=== PATIENT | male | born 1950 | race African-American/Black ===

== ENCOUNTER 2018-09-22 08:45 | Inpatient (IN) ==
--- NOTE | 2018-09-22 09:40 | Diag Imaging Result Doc PS360 ---
EXAM: CHEST-2 VIEWS HISTORY: sob TECHNIQUE: Chest two views COMPARISON: None. FINDINGS: The lungs are well expanded. The heart is not enlarged. The vessels are not distended. There are increased interstitial markings in the left lung base as well as a small left pleural effusion. IMPRESSION: Small left pleural effusion with left basilar atelectasis and possibly a small infiltrate. Electronically signed by Sebastian Ingram 09/22/2018 9:36 AM
[2018-09-22 09:58] LABS: BASO# 0.02 X1000 (0.0-0.2); BASO% 0.3 % (0.0-0.8); EOS# 0.01 X1000 (0.0-0.7); EOS% 0.1 % (0.0-10.0); HEMATOCRIT 43.4 % (42.0-52.0); HEMOGLOBIN 14.2 g/dL (14.0-18.0); IMM GRAN# 0.01 X1000 (0.0-0.04); IMM GRAN% 0.1 % (0.0-0.5); LYMPH# 0.62 X1000 (1.2-3.4); LYMPH% 8.8 % (20.5-51.1); MCH 28.3 PG (27-31); MCHC 32.7 g/dL (33-37); MCV 86.6 FL (81-99); MONO# 1.08 X1000 (0.11-0.59); MONO% 15.3 % (1.7-9.3); MPV 9.9 FL (7.4-10.4); NEUT# 5.31 X1000 (1.4-6.5); NEUT% 75.4 % (42.2-75.2); PLT 221 X1000 (130-400); RBC 5.01 XMIL (4.7-6.1); RDW 15.3 % (11.5-14.5); WBC 7.05 X1000 (4.8-10.8)
[2018-09-22 10:25] LABS: ALBUMIN 3.8 g/dL (3.5-5.0); CALCIUM 9.6 mg/dL (8.8-10.2); CREATININE 1.2 mg/dL (0.7-1.2); POTASSIUM 4.1 mmol/L (3.5-5.1); TOTAL BILIRUBIN 0.6 mg/dL (0.20-1.00); TOTAL PROTEIN 6.8 g/dL (6.3-8.3)
[2018-09-22 10:51] LABS: INR 1.6; PROTIME 19.8 Seconds (11.0-16.0)
--- NOTE | 2018-09-22 10:58 | EKG Report ---
Test Performed on : 09/22/2018 10:54:06 AM Test Reason : sob Blood Pressure : / mmHG Vent. Rate : 113 BPM Atrial Rate : 113 BPM P-R Int : 130 ms QRS Dur : 078 ms QT Int : 316 ms P-R-T Axes : 073 042 055 degrees QTc Int : 433 ms Sinus tachycardia. Low voltage QRS Borderline ECG No previous ECGs available Unconfirmed Result
[2018-09-22] MEDS ORDERED: ZITHROMAX PO ONE (11:27)
[2018-09-22] MEDS ORDERED: ROCEPHIN 1 GM in NS 50 ML IV ONE (11:27)
[2018-09-22] MEDS ORDERED: DUONEB (A & A) INH ONE (11:32)
--- NOTE | 2018-09-22 13:37 | Diag Imaging Result Doc PS360 ---
EXAM: CT ANGIOGRM PULMONARY ARTERIES 09/22/2018 HISTORY: dyspnea TECHNIQUE: This exam was performed using automated exposure control, adjustment of mA or kV according to patient size, and/or use of iterative reconstruction technique. COMMENT: 3-D MIPS were performed. There are no previous studies. There are no filling defects in the pulmonary arteries. There may be occlusion of the distal superior vena cava. There is dilatation and collateral flow of contrast in the azygos vein and hemiazygos veins. There are numerous collateral veins seen in the subcutaneous anterior thoracic wall. There are bilateral pleural fluid collections. There are postsurgical changes present in the right paratracheal region. There is volume loss in the posterior medial right upper lobe. There is also atelectasis in the superior segment of the right lower lobe. There is some increased interstitial markings in the right lower lobe and atelectasis is present in the inferior portion of the left lower lobe. There is apparent atelectatic or fibrotic linear scar in the anterior left upper lobe. There is a large pericardial effusion which posterior to the right ventricle measures over 3 cm in thickness. IMPRESSION: 1. No evidence of pulmonary emboli. 2. Occlusion of the distal superior vena cava with collateral flow. 3. Bibasilar atelectasis or pneumonia. Bilateral pleural effusions and pericardial effusion. Electronically signed by Efraín Dasilva 09/22/2018 1:35 PM
--- NOTE | 2018-09-22 13:57 | PROVIDER DOCUMENTATION ---
This chart was entered by Leigh Ferrell Scribe, acting as scribe for Bree Knight MD. HPI-Respiratory General - General Chief Complaint: Shortness of Breath Stated Complaint: SOB Time Seen by Provider: 09/22/18 10:47 Source: patient Allergies/Adverse Reactions: Patient Allergies Allergy/AdvReac Type Severity Reaction Status Date / Time No Known Allergies Allergy Verified 09/22/18 08:52 - History of Present Illness-Resp Nature of Presenting Problem: Patient is a 68 year old male who presents to the ED with shortness of breath and cough. Patient states symptoms have been present for 2 weeks. Patient denies fever. Patient states history of lung cancer that was diagnosed in 2016. Patient states he received chemo and radiation but is not currently on treatment for cancer. Quality of Pain: reports: tightness Severity in ED: reports: mild Onset/Duration: reports: other (2 weeks) Timing: reports: still present, getting worse Cough Quality/Degree: reports: moderate, dry cough Current Respiratory Medication Therapy: Initiated see nurses note Modifying Factors: improves with: nothing Associated Symptoms: reports: cough, shortness of breath Similar Symptoms Previously?: Yes Recently seen or treated by another doctor?: No Review of Systems - Adult - REVIEW OF SYSTEMS - ADULT Constitutional: reports: no symptoms reported Eyes: reports: no symptoms reported Ears, Nose, Mouth & Throat: reports: no symptoms reported Cardiovascular: reports: no symptoms reported Respiratory: reports: cough, shortness of breath. denies: wheezing Gastrointestinal: reports: no symptoms reported Genitourinary: reports: no symptoms reported Musculoskeletal: reports: no symptoms reported Integumentary: reports: no symptoms reported Neurological: reports: no symptoms reported Psychiatric: reports: no symptoms reported Endocrine: reports: no symptoms reported Hematologic/Lymphatic: reports: no symptoms reported Allergic/Immunologic: reports: no symptoms reported All Other Systems: Reviewed and Negative Past History - Adult - PAST MEDICAL HISTORY-ADULT Review of Records: reports: Nursing Assessment Review, Medications Reviewed, Social history reviewed & non-contributory. Major Childhood Illnesses: reports: denies history Cardiovascular: reports: HTN Respiratory: reports: cancer Gastrointestinal: reports: denies history Obstetrical/Gynecological: reports: denies history Genitourinary: reports: denies history Musculoskeletal: reports: denies history Neurological: reports: denies history Psychiatric: reports: denies history Endocrine/Immune: reports: denies history Other Conditions: reports: denies history - PRIOR SURGERIES/PROCEDURES Surgical/Procedure History: reports: reviewed, not pertinent - IMMUNIZATION STATUS Childhood Immunizations: See Nurse Assessment Flu Vaccine: See Nurse Assessment - FAMILY HISTORY Family History: reviewed, not pertinent - SOCIAL HISTORY Smoking: cigarettes (former) Substance Use: denies Living Situation: family Physical Exam-General - PHYSICAL EXAM-ADULT Initial Vital Signs Reviewed: Yes - CONSTITUTIONAL General Appearance: appears well, alert, no apparent distress - EYES Eyes: pink conjunctivae - HEAD, EARS, NOSE, MOUTH & THROAT HENMT: moist mucous membranes - NECK Neck: non-tender, supple - RESPIRATORY Respiratory: chest non-tender, no respiratory distress, no accessory muscle use , other (left lower lung rhochi) - CARDIOVASCULAR Cardiovascular: normal peripheral pulses, no edema, no murmur, tachycardia - GASTROINTESTINAL (ABDOMEN) Abdominal Exam: non tender, soft - LYMPHATIC Lymphatic: no adenopathy - MUSCULOSKELETAL Back Exam: normal inspection Extremity: normal range of motion, non-tender. negative: no pedal edema - SKIN Integumentary: normal color, normal turgor, warm/dry - NEUROLOGIC Neurologic: grossly normal, no motor/sensory deficits - PSYCHIATRIC Psych/Mental Status: normal mood/affect, normal thought content, normal thought process, oriented x 3 Progress - PLAN OF CARE/RESULTS Progress/Plan/Lab Results: Vital Signs - 8 hr 09/22/18 08:47 09/22/18 11:10 09/22/18 11:59 Temperature 97.5 F L Pulse Rate 123 H 115 H 122 H Respiratory Rate 24 14 24 Blood Pressure 118/83 119/92 O2 Sat by Pulse Oximetry 96 97 96 Laboratory Results - last 24 hr 09/22/18 09/22/18 09/22/18 09:40 09:40 09:40 WBC 7.05 RBC 5.01 Hgb 14.2 Hct 43.4 MCV 86.6 MCH 28.3 MCHC 32.7 L RDW Std Deviation 15.3 H Plt Count 221 MPV 9.9 Immature Gran % (Auto) 0.1 Neut % (Auto) 75.4 H Lymph % (Auto) 8.8 L Hampton % (Auto) 15.3 H Eos % (Auto) 0.1 Baso % (Auto) 0.3 Immature Gran # (Auto) 0.01 Neut # (Auto) 5.31 Lymph # (Auto) 0.62 L Hampton # (Auto) 1.08 H Eos # (Auto) 0.01 Baso # (Auto) 0.02 PT INR PTT (Actin FS) Sodium 140 Potassium 4.1 Chloride 107 Carbon Dioxide 19 L Anion Gap 14 BUN 24 H Creatinine 1.2 Estimated GFR/1.73 m2 60 BUN/Creatinine Ratio 20 Glucose 116 H Calculated Osmolality 284 Calcium 9.6 Total Bilirubin 0.60 AST 20 ALT 27 Alkaline Phosphatase 80 Creatine Kinase 91 Troponin T Qsq-U-Lquoudrfxbb Pept 298 H Total Protein 6.8 Albumin 3.8 Globulin 3.0 Albumin/Globulin Ratio 1.0 09/22/18 09/22/18 09:40 09:40 WBC RBC Hgb Hct MCV MCH MCHC RDW Std Deviation Plt Count MPV Immature Gran % (Auto) Neut % (Auto) Lymph % (Auto) Hampton % (Auto) Eos % (Auto) Baso % (Auto) Immature Gran # (Auto) Neut # (Auto) Lymph # (Auto) Hampton # (Auto) Eos # (Auto) Baso # (Auto) PT 19.8 H INR 1.60 PTT (Actin FS) 36.0 Sodium Potassium Chloride Carbon Dioxide Anion Gap BUN Creatinine Estimated GFR/1.73 m2 BUN/Creatinine Ratio Glucose Calculated Osmolality Calcium Total Bilirubin AST ALT Alkaline Phosphatase Creatine Kinase Troponin T < 0.010 Amt-X-Rgrnynfbzwh Pept Total Protein Albumin Globulin Albumin/Globulin Ratio Orders Category Date Time Status Cardiac Monitoring DIRECTED Care 09/22/18 08:53 Active Oxygen Therapy- ED Nursing DIRECTED Care 09/22/18 08:53 Active Saline Loc NOW Care 09/22/18 08:53 Active CHEST-2 VIEWS [RAD] Stat Exams 09/22/18 08:[address] ANGIOGRM PULMONARY ARTERIES [CT] Stat Exams 09/22/18 11:49 Completed CBC WITH ELECTRONIC DIFF [HEME] Stat Lab 09/22/18 09:40 Completed CK PROFILE [SP CHEM] Stat Lab 09/22/18 09:40 Completed COMPREHENSIVE METABOLIC PANEL [CHEM] Stat Lab 09/22/18 09:40 Completed PRO B-NATRIURETIC PEPTIDE Stat Lab 09/22/18 09:40 Completed PROTIME WITH INR [COAG] Stat Lab 09/22/18 09:40 Completed PTT [COAG] Stat Lab 09/22/18 09:40 Completed TROPONIN T Stat Lab 09/22/18 09:40 Completed Albuterol 2.5MG/Ipratrop 0.5MG [Duoneb (A & A)] Med 09/22/18 11:32 Discontinued 3 ml INH NOW ONE Azithromycin [Zithromax] Med 09/22/18 11:27 Discontinued 500 mg PO NOW ONE CefTRIAXONE [Rocephin] 1 gm Med 09/22/18 11:27 Discontinued 0.9% Sodium Chloride Inj [Ns] 50 ml IV NOW Aerosol Treatments Routine Oth 09/22/18 11:32 Completed Aerosol Treatments Stat Oth 09/22/18 11:32 Completed CP/SOB/Palp >45 yrs of Age Stat Oth 09/22/18 08:52 Ordered EKG [EKG] Stat Ther 09/22/18 08:53 Draft chest xray infiltrate likely and effusion on LLL, nl total wbc but large shift in neutrophils, bnp nl, HR elevated 111, PMH lung ca on right stable with recent CT and echo Aug 2018, suspect pneumonia, pt had great difficulty walking across the parking lot to get to the ED 1318 d/w Dr Cerrato HPI exam chest xray labs treatment waiting on CTA to verify 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 FINDINGS: The lungs are well expanded. The heart is not enlarged. The vessels are not distended. There are increased interstitial markings in the left lung base as well as a small left pleural effusion. IMPRESSION: Small left pleural effusion with left basilar atelectasis and possibly a small infiltrate. Electronically signed by Sebastian Ingram 09/22/2018 9:36 AM 09/22/18 0936 Interpreting Physician: Sebastian Ingram MD Dictated Date/Time: 09/22/1835 cc: Bree Knight MD;) Departure - Departure Date of Disposition Decision: 09/22/18 Time of Disposition Decision: 13:18 DIAGNOSIS: Dyspnea Pneumonia Qualifiers: Laterality: left Lung location: lower lobe of lung Disposition: ADMITTED INPATIENT 09 Certified Medical Emergency: Emergent Condition: Good Referrals and Follow-Ups: None,PCP [Primary Care Provider] - - Critical Care Note This patient required my direct & personal management of CC.: No Attestation - Physician/ TAYLOR Attestation The physician spent face to face time with patient:: Yes Advanced Practice Provider documentation review:: Supervising physician onsite and consulted in the evaluation and care of this patient. The physician did have a face to face encounter with the patient. This chart was documented by the indicated scribe, (Leigh Ferrell Scribe) and accurately reflects the services I performed and decisions made by me, Bree Knight MD, as attested by the provider's signature.
[2018-09-22] MEDS ORDERED: TYLENOL PO PRN (15:42)
[2018-09-22] MEDS ORDERED: ZOFRAN IV PRN (15:42)
[2018-09-22] MEDS ORDERED: NS 1,000 ML IV SCH (16:00)
--- NOTE | 2018-09-22 17:28 | HISTORY AND PHYSICAL ---
CHIEF COMPLAINT: Is shortness of breath for 2 weeks. HISTORY OF PRESENT ILLNESS: This is a very pleasant 68-year-old gentleman with a history of prostate and lung cancer. He presents to the emergency room complaining of 2 weeks of increasing shortness of breath and orthopnea. He has a history of lung cancer as well as prostate cancer for which he has undergone radiation. He does have residual right lung tumor that they were unable to excise. He states that this has subsequently caused vena caval compression and that over the years that he has formed collaterals. He did state that for many years he had facial and upper extremity swelling but this is decreased as collaterals have increased. He states that he has a known pericardial effusion and that he is followed by Dr. Topher Boateng in [place], his senior teradata developer. He had an echocardiogram done in August and he stated that it was stable, although he is unaware of the size of the pericardial effusion. He denied any fevers, chills, any night sweats, a productive cough. 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 Once he arrived, he presented to the emergency room. PAST MEDICAL HISTORY: 1. Lung cancer status post chemo and radiation. 2. Prostate cancer. 3. Hypertension. 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 PAST SURGICAL HISTORY: Pericardial window for pericardial effusion. SOCIAL HISTORY: He denies alcohol, tobacco or illicit drug use. 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 Denies alcohol, tobacco, or illicit drug use. ALLERGIES: No known drug allergies. HOME MEDICATIONS: A list will be obtained by the nursing staff and once reviewed we will restart as appropriate. REVIEW OF SYSTEMS: Discussed with the patient with pertinent positives stated in the HPI. He denied any syncope, dizziness, any chest pain, palpitations, a productive cough , any fevers or chills, night sweats, recent weight loss or weight gain, any nausea, vomiting, diarrhea, constipation, black or bloody vomitus or stools, any hematuria, dysuria, frequency, urgency. PHYSICAL EXAMINATION: GENERAL: This is a 68-year-old gentleman who is sitting up in the stretcher in the emergency room in no distress. VITAL SIGNS: Blood pressure is 119/90 with a heart rate of 115, respirations are 18 to 28, O2 saturation are 96 to 97% on 2 L nasal cannula. HEENT: Pupils are equal, round, react to light. EOMs are intact. Sclerae are anicteric. Head is normocephalic, atraumatic. Mucous membranes are moist. NECK: Supple with trachea midline. CARDIOVASCULAR: Regular rate and rhythm. S1 and S2 are appreciated. He has no lower extremity edema with peripheral pulses palpable x4 extremities. He is tachycardic. PULMONARY: Breath sounds are diminished in the bases. Chest rises and falls symmetrically with respiration. Chest wall is nontender to palpation. GASTROINTESTINAL: Abdomen is soft, nontender, nondistended with bowel sounds in all 4 quadrants. GENITOURINARY: He has no CVA nor suprapubic tenderness. NEUROLOGIC: He is alert, oriented x3. SKIN: Warm and dry. LABS: WBC is 7.0 with hemoglobin 14.2, hematocrit 43.4 and platelets of 221, 000. Sodium is 140, potassium 4.1, BUN 24, creatinine 1.2 with a glucose of 116. Chest x-ray revealed small left pleural effusion with left basilar atelectasis and probably a small infiltrate. CTA pulmonary revealed no evidence of pulmonary emboli. There may be occlusion of the distal superior vena cava with collateral flow, bibasilar atelectasis or pneumonia. ASSESSMENT AND PLAN: 1. Left lower lobe pneumonia. 2. Tachycardia. 3. Pericardial effusion. 4. History of lung cancer with residual right lung tumor. 5. 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 This is secondary to the right lung residual tumor. The patient will be admitted to [facility] ICU. He will be placed on telemetry. Will give supplemental oxygen, give Xopenex and Atrovent nebs q.4 hours. Rocephin and azithromycin for antibiotic coverage. CBC and CMP in the morning. Consulted and discussed with Dr. Dominguez Sanford with Cardiology who reviewed the patient's chart. He has ordered an echocardiogram . The patient's senior teradata developer Dr. Topher Boateng is at [facility] in [place]. His phone #[phone]. I did attempt to call the office to obtain records. They are closed. The answer service did state that there was another covering group direct care professional tonight. Further treatments pending hospital course. Dictated by DORIAN Parra for German Cerrato MD This chart was documented by, DORIAN Parra and accurately reflects the services performed, treatment plan and medical decisions as attested by the providers signature German Cerrato MD. cc: DORIAN Parra MD [facility]
[2018-09-22] MEDS: ATROVENT NEB INH SCH ×2 (19:30→22:46)
[2018-09-22] MEDS: XOPENEX NEB INH SCH ×2 (19:30→22:46)
--- NOTE | 2018-09-22 19:55 | CARDIOLOGY CONSULTATION ---
DATE: 09/22/2018 CHIEF COMPLAINT: Shortness of breath. HISTORY OF PRESENT ILLNESS: Mr. Orozco is a 68-year-old black male with a history of lung cancer with previous chemotherapy and radiation. He is a resident of [place] and has all of his care provided there. 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 He noted progressive shortness of breath over the last several days and presented to the ER. In the ER he had an echocardiogram which suggested a very large pericardial effusion with early tamponade type signs. The patient did report some discomfort in his chest which seems to improve with a more upright and leaning over posture. He denies any overt fevers. He has had some mild dry cough. He has had no exertional chest pain. He has noted significant dyspnea on exertion as well as some issues with orthopnea. PAST MEDICAL HISTORY: 1. Significant for lung cancer with previous chemo and radiation therapy. He has not received any sort of treatment for this since March. The reason for the cessation of therapy is unclear but he has returned to work. 2. Prostate cancer. 3. Hypertension. 4. History of pericardial effusion with previous pericardial window. He has had echocardiograms performed recently and has had a reported pericardial effusion that his oil and gas principal in [place] said but did not require treatment. 5. Superior vena cava occlusion with collateralization. SOCIAL HISTORY: No alcohol, tobacco or illicit drugs. 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 FAMILY HISTORY: Significant for hypertension. REVIEW OF SYSTEMS: A 10 system review of systems is negative except for those mentioned in HPI. PHYSICAL EXAMINATION: The patient is afebrile. His heart rates are in the 110s to 120s. His blood pressure most recently was in the 130 systolic, 122/81 at 1750.General: He is in minimal distress secondary to shortness of breath. HEENT: Oropharynx is moist. He has normal dentition. His eye examination shows pink conjunctivae, white sclerae. Neck: Shows distended jugular veins. Cardiovascular: He sounds to be in a mildly tachycardic and regular rhythm. He has no murmurs. He has no S3. He has trace bilateral lower extremity edema and warm and well perfused lower extremities. Chest: Is notable for bilateral mild rales. No increased work of breathing. Abdomen: Soft, nontender, nondistended. He has no obvious organomegaly. Skin: Warm and dry throughout without any rashes. Neurological: He is moving all extremities well. He has no lateralizing deficits. Psychiatric: He is alert, oriented, pleasant. He has a normal mood and affect. PERTINENT DATA: His EKG shows sinus tachycardia at 113 beats per minute. He has generalized low voltage. His pulmonary arteriogram shows no evidence of pulmonary emboli. He has an occlusion of the distal superior vena cava with significant collateralization. Large pericardial effusion with bilateral pleural effusions. His echocardiogram had been reviewed by me and demonstrated a significant pericardial effusion. Lab data shows a white count of 7, hematocrit 43, platelet count 221,000. His INR is 1.6. His sodium is 140, potassium 4.1, BUN 24, creatinine is 1.2. His proBNP is 298. His liver enzymes are unremarkable. His albumin is 3.8. ASSESSMENT: Mr. Orozco is a 68-year-old gentleman with a history of lung cancer, who has a previously followed pericardial effusion that presently seems to have progressed to the point of early tamponade. PLAN: Currently he seems clinically stable. His blood pressure is maintaining. He is saturating well on 2 L nasal cannula. I agree with continuing him on IV fluids. I have discussed the case with Dr. Duval of the surgical service and they will evaluate him in the morning for pericardial window. I have made him NPO after midnight. I have ordered basic laboratories in the morning as well. cc: Dominguez Sanford MD
[2018-09-22] MEDS: NS 1,000 ML IV SCH (23:27)
--- NOTE | 2018-09-22 23:33 | ECHO REPORT ---
ORDER DATE: 09/22/2018 MEASUREMENTS: Left ventricular end-diastolic diameter 2.6, septal thickness 1.7, aortic root 2.9, left atrium 3.5. SUMMARY: 1. Adequate quality study. 2. Moderate sclerosis of trileaflet aortic valve predominantly involving the right coronary cusp with reduced aortic valve leaflet mobility. Peak gradient across aortic valve is 40 mmHg with a mean gradient of 14 mmHg. Calculated aortic valve area by Doppler is 1.1 to 1.2 cm sq suggesting moderate aortic stenosis. There is mild aortic regurgitation. Mitral and tricuspid valves are without evidence of structural abnormality. There is trace tricuspid regurgitation. Aortic root is normal in size. Pulmonic valves not well demonstrated. 3. Normal left ventricular chamber size with moderate concentric left hypertrophy is demonstrated. Estimated left ejection fraction appears to be at least 65%. No regional wall motion abnormalities evident. Left atrium is normal in size. Right atrium, right ventricle are normal in size with grossly preserved right ventricular systolic function. 4. Large circumferential pericardial effusion is demonstrated. Echocardiographic appearance does not confirm tamponade. 5. Inferior vena cava appears upper normal in size suggesting upper normal central venous pressure. cc: MD Dominguez Cannon MD
--- NOTE | 2018-09-23 00:16 | HISTORY AND PHYSICAL ---
ADDENDUM: Patient seen and examined by myself, full note dictated and discussed with nurse practitioner. Patient has a known history of lung cancer has recently had a CT scan that was reported as stable, has history of prostate cancer as well as chronic vena caval occlusion with collateral flow. He presented the hospital with increased cough, congestion, increased work of breathing, shortness of breath subsequently diagnosed with left lower lobe pneumonia, will admit him the hospital, place on antibiotics and follow. Please see full note. cc: German Cerrato MD
[2018-09-23] MEDS: ATROVENT NEB INH SCH ×6 (03:48→22:49)
[2018-09-23] MEDS: XOPENEX NEB INH SCH ×6 (03:49→22:50)
--- NOTE | 2018-09-23 08:15 | GENERAL SURGERY CONSULTATION ---
DATE: 09/23/2018 TIME SEEN: 7:40 in the morning. HISTORY OF PRESENT ILLNESS: Mr. 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 He is en route from [place] to [place] and presented with shortness of breath. He has a known history of lung cancer, being treated with radiation. Also, apparently has a history of prostate cancer as well. His workup has revealed a pericardial effusion with early tamponade features. He has a history of a previous pericardial window back in 2016. He says he subsequently developed venous collaterals over time since over the past year. His CT scan suggested distal superior vena cava occlusion. SOCIAL HISTORY: He denies alcohol, tobacco, or drug use. He is alone and is not . ALLERGIES: He has no known drug allergies. MEDICATIONS: Currently include Rocephin, Xopenex, Atrovent, and Zithromax. PHYSICAL EXAMINATION: General: He is awake, alert, and oriented. Small venous collaterals are noted on his chest wall. Chest: has bilateral breath sounds. Heart: He is tachycardic with his rate being in the 120 range. Abdomen: Soft. He reports some peripheral swelling, but he does not have a lot of lower extremity edema. LABORATORY DATA: Shows a white count of 7000, hemoglobin 14.2. Pro-time is 19.8 with an INR 1.6. BUN 24, creatinine 1.2. PLAN: I have been asked to consider a pericardial window. The challenge is that the fact that he has had a previous subxiphoid pericardiotomy. He now has numerous venous collaterals. His INR is slightly elevated as well. I will talk with Radiology about a percutaneous aspiration of his pericardial fluid as an alternative to an incision because of his risks involved. If we proceed with incision and pericardial window, will probably go through a left anterior thoracotomy in order to try to avoid previous scar below the xiphoid. cc: Prakash Duval MD
[2018-09-23 08:46] LABS: HEMATOCRIT 46.3 % (42.0-52.0); HEMOGLOBIN 15.2 g/dL (14.0-18.0); MCH 28.8 PG (27-31); MCHC 32.8 g/dL (33-37); MCV 87.9 FL (81-99); MPV 10.1 FL (7.4-10.4); RBC 5.27 XMIL (4.7-6.1); RDW 15.6 % (11.5-14.5); WBC 7.76 X1000 (4.8-10.8)
[2018-09-23 08:55] LABS: INR 1.29; PROTIME 17.1 Seconds (11.0-16.0)
[2018-09-23 08:56] LABS: PTT 31.9 Seconds (22.3-41.8)
[2018-09-23] MEDS ORDERED: ZITHROMAX PO SCH (09:00)
[2018-09-23 09:38] LABS: AGAP 15; ALB/GLOB RATIO 1.8; ALBUMIN 4.3 g/dL (3.5-5.0); ALKALINE PHOSPHATASE 79 U/L (32-122); BUN 19 mg/dL (8-22); CALCIUM 9.5 mg/dL (8.8-10.2); CHLORIDE 106 mmol/L (98-107); COSMO 285; CREATININE 1.1 mg/dL (0.7-1.2); ESTIMATED GFR > 60; GLUCOSE 121 mg/dL (70-104); GOT 22 U/L (10-34); GPT 34 U/L (10-44); POTASSIUM 4.5 mmol/L (3.5-5.1); SODIUM 141 mmol/L (136-145); TCO2 20 mmol/L (25-35); TOTAL BILIRUBIN 0.74 mg/dL (0.20-1.00); TOTAL PROTEIN 6.7 g/dL (6.3-8.3)
--- NOTE | 2018-09-23 11:36 | Diag Imaging Result Doc PS360 ---
EXAM: CHEST-2 VIEWS INDICATION: POST DRAIN TECHNIQUE: 2 views COMPARISON: 09/22/2018 FINDINGS: The newly placed pericardial drain is noted with the tip coiled near the cardiac apex. The cardiac silhouette has decreased in size the two aspiration of approximately 400 mL of pericardial fluid during the procedure. The small amount of pericardial and pleural gas seen on the postprocedural CT on the left is not visible by plain radiograph. The small left pleural effusion is stable. Atelectasis at the lung bases is noted. IMPRESSION: 1.The small amount of pleural and pericardial gas seen on the recent postprocedural CT is not identified by plain radiograph. 2.Decreasing cardiac silhouette size as a result of pericardial tube placement. Electronically signed by Ron Duran 09/23/2018 11:33 AM
[2018-09-23] MEDS: ROCEPHIN 1 GM in NS 50 ML IV SCH (11:47)
--- NOTE | 2018-09-23 12:31 | Diag Imaging Result Doc PS360 ---
EXAM: CT PLEURAL DRN CATH W/CT GUIDE INDICATION: pericardial effusion TECHNIQUE: COMPARISON: 09/22/2018 FINDINGS: Risks, benefits, and alternatives were discussed with the patient and informed consent was obtained. The patient was placed in a supine position and was prepped and draped in sterile fashion. Local anesthesia was achieved with 1% lidocaine solution. Using CT guidance, a 10-New Zealander pigtail drainage catheter was placed in the pericardial space adjacent to the apex of the heart taking care to avoid the dilated subcutaneous varices at the chest wall. Proximally 400 mL of reddish-brown serosanguineous fluid was aspirated. The patient reported immediate improvement of dyspnea after aspiration. The patient tolerated the procedure well. Postprocedural scans showed a significant improvement of the size of the pericardial fluid collection. There was a small amount of pericardial gas as well as a small amount of pleural gas adjacent to the lingula. However, this was not perceptible on a following chest radiograph. The catheter was secured with silk suture and a catheter dressing. IMPRESSION: Technically successful CT-guided pericardiocentesis and pigtail catheter placement with a small amount of postprocedural pericardial and left pleural gas. Electronically signed by Ron Duran 09/23/2018 12:30 PM
[2018-09-23] MEDS: NS 1,000 ML IV SCH (14:01)
[2018-09-23 15:11] LABS: GLUCOSE BODY FLUID 77 mg/dL; LDH BODY FLUID 528 U/L; TOTAL PROT BODY FLUID 3.5 g/dL
[2018-09-23 16:13] LABS: BODY FLUID SOURCE PLEURAL FLUID; PH BODY FLUID 8.5; SPECIMEN PLEURAL FLUID
[2018-09-23 16:14] LABS: MONOS 15 %; POLYS 85 %; WBC BF 804 /cumm
[2018-09-23] MEDS: MORPHINE IV PRN ×2 (16:17→22:36)
--- NOTE | 2018-09-23 20:23 | CARDIOLOGY PROGRESS NOTE ---
DATE: 09/23/2018 SUBJECTIVE: Mr. Orozco underwent his pericardiocentesis today with around 400 mL of fluid drained. Drain is still in place. He is feeling much better. Still has a little bit of shortness of breath that he relates to a splinting type discomfort around the catheter site when he takes a deep breath. PHYSICAL EXAMINATION: Vital signs: The patient is afebrile. His heart rate is 98, his blood pressure is 129/79. Generally, he is in no acute distress. Cardiovascular: He sounds to be in a regular rate and rhythm. I do not hear any obvious murmurs. Catheter site is clean, dry, bandaged. Is still outputting some relatively bloody fluid at the current time. Chest: His chest exam is clear bilaterally. He has no increased work of breathing. Abdomen: Soft, nontender. PERTINENT DATA: His lab data today shows a sodium 141, potassium 4.5, BUN 19, creatinine is 1.1. His hematocrit is 46. ASSESSMENT: Mr. Orozco is a 68-year-old gentleman with a history of lung cancer with what appears to be a malignant effusion with recurrence after previous pericardial window quite some time ago. PLAN: I have discussed with his primary cook italian style food in [place], Dr. Fuentes, and he is sending us some records regarding the patient. We will continue with a drain in place until the output has fallen off significantly, hopefully less than 25 mL. Presently, the patient is much better clinically. Continue with supportive care. cc: Dominguez Sanford MD [facility]
--- NOTE | 2018-09-23 21:51 | Diag Imaging Result Doc PS360 ---
EXAM: CHEST-PORTABLE INDICATION: per Dr. Sanford TECHNIQUE: 2 views COMPARISON: None. FINDINGS: The pericardial catheter is in stable position. Still no pneumothorax can be identified by plain radiograph. There is probably trace pericardial gas, which was seen on a postprocedural CT performed earlier today. There has been interval development of pulmonary edema and pulmonary venous congestion. There has been development of a small right pleural effusion. IMPRESSION: 1.No perceptible pneumothorax by plain radiograph. 2.Likely trace pericardial gas, which is expected given recent placement of the pericardial drainage catheter. 3.Development of pulmonary edema and pulmonary venous congestion with a small right effusion. Electronically signed by Ron Duran 09/23/2018 9:49 PM
[2018-09-24] MEDS: NS 1,000 ML IV SCH (03:21)
[2018-09-24] MEDS: ATROVENT NEB INH SCH ×6 (03:52→23:02)
[2018-09-24] MEDS: XOPENEX NEB INH SCH ×6 (03:53→23:03)
[2018-09-24 07:08] LABS: BASO# 0.02 X1000 (0.0-0.2); BASO% 0.2 % (0.0-0.8); EOS# 0.01 X1000 (0.0-0.7); EOS% 0.1 % (0.0-10.0); HEMATOCRIT 44.6 % (42.0-52.0); HEMOGLOBIN 14.2 g/dL (14.0-18.0); IMM GRAN# 0.03 X1000 (0.0-0.04); IMM GRAN% 0.3 % (0.0-0.5); LYMPH# 0.79 X1000 (1.2-3.4); LYMPH% 8.8 % (20.5-51.1); MCH 28.5 PG (27-31); MCHC 31.8 g/dL (33-37); MCV 89.6 FL (81-99); MONO# 1.32 X1000 (0.11-0.59); MONO% 14.7 % (1.7-9.3); MPV 9.8 FL (7.4-10.4); NEUT# 6.81 X1000 (1.4-6.5); NEUT% 75.9 % (42.2-75.2); PLT 223 X1000 (130-400); RBC 4.98 XMIL (4.7-6.1); RDW 15.5 % (11.5-14.5); WBC 8.98 X1000 (4.8-10.8)
--- NOTE | 2018-09-24 07:23 | Diag Imaging Result Doc PS360 ---
EXAM: CHEST-PORTABLE INDICATION: per Dr. Duran TECHNIQUE: One view COMPARISON: 09/23/2018 FINDINGS: The pericardial tube is in stable position. Pulmonary edema and pulmonary venous congestion appears to have improved marginally. The small right effusion is approximately stable. No pericardial gas can be identified on the current study. No pneumothorax is perceptible. IMPRESSION: 1.Interval marginal improvement of pulmonary edema and pulmonary venous congestion. 2.The trace pericardial fluid seen previously is not perceptible on the current study. Electronically signed by Ron Duran 09/24/2018 7:21 AM
[2018-09-24 07:30] LABS: AGAP 12; ALB/GLOB RATIO 1.7; ALBUMIN 3.8 g/dL (3.5-5.0); ALKALINE PHOSPHATASE 70 U/L (32-122); BUN 14 mg/dL (8-22); CALCIUM 8.8 mg/dL (8.8-10.2); CHLORIDE 104 mmol/L (98-107); COSMO 276; CREATININE 1.1 mg/dL (0.7-1.2); ESTIMATED GFR > 60; GLUCOSE 100 mg/dL (70-104); GOT 21 U/L (10-34); GPT 29 U/L (10-44); POTASSIUM 4.5 mmol/L (3.5-5.1); SODIUM 138 mmol/L (136-145); TCO2 22 mmol/L (25-35); TOTAL BILIRUBIN 0.88 mg/dL (0.20-1.00); TOTAL PROTEIN 6.1 g/dL (6.3-8.3)
--- NOTE | 2018-09-24 08:44 | PROGRESS NOTE ---
DATE: 09/23/2018 SUBJECTIVE: This morning, Mr. Orozco refers to be feeling a lot better. According to him, the shortness of breath has significantly improved. He just got the pericardiocentesis done and from the IR report, 400 mL of serosanguineous fluid was removed and immediately the patient reported improvement in the dyspnea. Briefly, Mr. Orozco is a 68-year-old gentleman who is resident of [place], who has been diagnosed with lung cancer since 2016. He did undergo multiple rounds of chemotherapy and radiation therapy. The last cycle was March 2018, in [place]. He also refers that somewhere in 2017, he had some shortness of breath and was told that fluid had accumulated around his heart, so he underwent pericardial window. Subsequently, he has been doing fairly okay, but for the past 2 weeks, he has been coming down with some shortness of breath. He went to see his geothermal field technician in [place] and he was told that there was some fluid around his heart, but not enough to warrant any intervention. 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 OBJECTIVE: Vital Signs: This morning, his vitals show blood pressure 129/79, pulse 98, respirations 24, temperature 98.0 degrees. The patient was saturating 96% on 4 L. General: Mr. Orozco is a 68-year-old gentleman. He was in bed. He was in mild respiratory distress. He is currently on 4 L of nasal cannula. HEENT: Mucosa is pink and moist. Anicteric. Acyanotic. Neck: Supple. There is an extensive superficial vein dilation on the anterior chest wall as well as around the neck. Chest: Air entry is bilaterally reduced. There are some crackles posteriorly. There is a JERRELL drain in the 5th intercostal space. Cardiovascular: Regular rate and rhythm. There are no murmurs, no rubs, no gallops. Abdomen: Soft. Bowel sounds present. No hepatosplenomegaly. Extremities: No pedal edema. Central nervous system: The patient is awake, alert, and oriented. No focal neurological deficit. LABORATORY DATA: Reviewed. CBC is completely unremarkable. Chemistry is also completely unremarkable except for a bicarb of 29. DIAGNOSTIC STUDIES: An echocardiogram which was done yesterday did show a large circumferential pericardial effusion. Also, the inferior vena cava appears upper normal in size , suggesting upper normal central venous pressure. CT angiogram shows no evidence of pulmonary emboli. However, there is an occlusion of the distal superior vena cava with collateral flow. ASSESSMENT AND PLAN: 1. Symptomatic, large, recurrent pericardial effusion. The patient is status post pericardiocentesis with 400 mL serosanguineous fluid having been immediately removed and the patient referred to be feeling much better. The Kofi-Yang drain is still in place. Will continue to monitor. 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 2. History of lung cancer. The patient follows up normally with his oncologist in [place]. 3. 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 4. Bilateral lower lobe atelectasis/pneumonia. The patient has been started on antibiotics. Will continue with incentive spirometer. cc: Brian Welsh MD [facility]
[2018-09-24] MEDS: ROCEPHIN 1 GM in NS 50 ML IV SCH (09:08)
[2018-09-24] MEDS ORDERED: ZOFRAN IV PRN (09:31)
[2018-09-24] MEDS ORDERED: TYLENOL PO PRN (09:31)
--- NOTE | 2018-09-24 09:34 | GENERAL SURGERY PROGRESS NOTE ---
DATE: 09/24/2018 Mr. Orozco says he feels significantly better. He is less short of breath. His heart rate is 109 this morning. He has significant decrease in his pericardial effusion based on the echocardiogram. He has 1600 mL recorded as output on his drain. The drain will stay in place today, and we will keep it until the drainage significantly decreases. [facility] will cover in my absence. cc: Prakash Duval MD
[2018-09-24] MEDS ORDERED: LASIX IV ONE (09:51)
[2018-09-24] MEDS: ZITHROMAX PO SCH (10:30)
--- NOTE | 2018-09-24 10:41 | PROGRESS NOTE ---
DATE: 09/24/2018 SUBJECTIVE: This morning Mr. Orozco refers to be doing a little better. Shortness of breath is improving. She says he normally has some chronic residual shortness of breath anyway since he was diagnosed with the lung cancer. He has had a total of 1600 drained from the pericardiocentesis overnight. OBJECTIVE: Vital Signs: This morning, his vitals revel blood pressure is 123/87, pulse is 112, respirations 20, temperature is 98.7 degrees. General exam: Mr. Orozco is a 68-year-old, gentleman. He is in bed. He did not seem to be in any cardiopulmonary distress. HEENT: Mucosa is pink and moist. Patient is on nasal cannula and he is satting 97% on 4 L. Neck: Supple. There is no JVD. Chest: Air entry is bilaterally reduced, more so to the left posterior lung field. There are some crackles bilaterally, worse on the left side than the right. Cardiovascular: Slightly tachycardic, but no murmurs, no rubs, no gallops. There is a JERRELL drain in the fifth intercostal space. The area around the insertion looks clean. Abdomen: Soft, nontender. Bowel sounds are present. There is no hepatosplenomegaly. Extremities: No pedal edema. Distal pulses are present. BIN OPERATOR: Patient is awake, alert and oriented. LABORATORY DATA: 1. WBC is 8.98, hemoglobin is 14.2, platelet count of 233. Chemistry is also reviewed, unremarkable. 2. Analysis of the fluid from the pericardium showed white cell count of 804 with predominantly segments of 85%. LDH was about 528. ASSESSMENT: 1. Large symptomatic pericardial effusion, status post pericardiocentesis. Overnight 1600 mL of fluid has been documented to have been drained. 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 We will continue to follow up on the amount of drainage until it is remarkably reduced before the JERRELL drain is removed. 2. History of small-cell lung cancer. Patient follows up with oncologist in [place]. 3. 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 4. Bilateral lower lobe atelectasis versus pneumonia. We will continue with the current antibiotics. 5. Pulmonary edema, likely due to congestive heart failure with preserved ejection fraction noted. We will get the patient a dose of Lasix this morning since she seems to be slightly more tachypneic this morning and sounds more congested. So, will also discontinue the intravenous fluids. PLAN: So, in general, I think Mr. Orozco is fairly stable. We are going to continue with the current antibiotic coverage and intensive care unit management for today. He will also get a dose of Lasix and we will discontinue the IV fluids. The patient is being followed by Cardiology and Surgery. We appreciate their valuable inputs. cc: Brian Welsh MD
--- NOTE | 2018-09-24 14:04 | CARDIOLOGY PROGRESS NOTE ---
DATE: 09/24/2018 SUBJECTIVE: Mr. Orozco is in some minor to moderate discomfort secondary to the pericardial drain. OBJECTIVE: Vital Signs: He is afebrile. His heart rates continue to be elevated in the 100s to 110s. Blood pressure 125/79. Drain output yesterday was 1600 mL including the initial 400 drained at the time of the placement. General: He is in mild to moderate distress secondary to the discomfort. Cardiovascular: He sounds to be in a mildly tachycardic, but regular rhythm. He has no murmurs. He has no lower extremity edema. Chest: He has mild basilar rales. No increased work of breathing. Abdomen: Soft, nontender. PERTINENT DATA: Lab data shows a white count 8.9, hematocrit 44, platelet count 223,000. Sodium 138, potassium 4.5, BUN 14, creatinine 1.1. ASSESSMENT: Mr. 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 PLAN: He continues to have the drain in place. An echocardiogram is pending for today. Hopefully, he will have reduction in his drain output. Will continue to monitor. cc: Dominguez Sanford MD
--- NOTE | 2018-09-24 14:23 | ECHO REPORT ---
ORDER DATE: 09/24/2018 LIMITED ECHOCARDIOGRAM: INDICATIONS: Assess for pleural effusion following drainage. SUMMARY: 1. Normal left ventricular cavity size. Hyperdynamic left ventricular systolic function estimated at 70% to 75%. 2. Aortic valve leaflets are trileaflet. Mitral valve was normal. Tricuspid valve was normal. 3. There is small anterior and large posterior pericardial effusions. Also, a large effusion noted laterally. There is no obvious evidence of tamponade. Catheter was noted in the pericardial sac. cc: MD Dominguez Zelaya MD
[2018-09-24] MEDS: MORPHINE IV PRN (14:36)
[2018-09-24] MEDS ORDERED: ROBITUSSIN-AC PO PRN (14:39)
[2018-09-25] MEDS: ATROVENT NEB INH SCH ×4 (03:15→15:25)
[2018-09-25] MEDS: XOPENEX NEB INH SCH ×4 (03:15→15:25)
--- NOTE | 2018-09-25 07:01 | Diag Imaging Result Doc PS360 ---
EXAM: CHEST-PORTABLE 09/25/2018 HISTORY: dyspnea TECHNIQUE: AP portable at 0508 COMMENT: There is a drainage tube over the lower left chest. There is apparent pleural fluid on the right. This is worse than on the previous study of 09/24/2018. The hemidiaphragm is now completely obscured. There is atelectasis and/or pneumonia present in the lower lobes particularly the right lower lobe. There is cardiomegaly. IMPRESSION: Worsened right pleural effusion. Electronically signed by Efraín Dasilva 09/25/2018 6:58 AM
--- NOTE | 2018-09-25 08:24 | PROGRESS NOTE ---
DATE: 09/25/2018 SUBJECTIVE: Terrance Orozco is a 68-year-old black male in our ICU Bed 2. He has a drain in his pericardial sac because of a pericardial effusion. This was actually placed by Radiology. He is eating breakfast. OBJECTIVE: There is still some drainage in the drain. PLAN: We will leave it in place for now. He appears to be hemodynamically stable. cc: Veronica Coates MD
[2018-09-25 08:27] LABS: BASO# 0.02 X1000 (0.0-0.2); BASO% 0.2 % (0.0-0.8); EOS# 0.01 X1000 (0.0-0.7); EOS% 0.1 % (0.0-10.0); HEMATOCRIT 45.9 % (42.0-52.0); IMM GRAN# 0.02 X1000 (0.0-0.04); IMM GRAN% 0.2 % (0.0-0.5); LYMPH# 0.76 X1000 (1.2-3.4); LYMPH% 8.8 % (20.5-51.1); MCH 28.8 PG (27-31); MCHC 32.7 g/dL (33-37); MCV 88.1 FL (81-99); MONO# 1.25 X1000 (0.11-0.59); MONO% 14.5 % (1.7-9.3); MPV 9.6 FL (7.4-10.4); NEUT# 6.54 X1000 (1.4-6.5); NEUT% 76.2 % (42.2-75.2); PLT 236 X1000 (130-400); RBC 5.21 XMIL (4.7-6.1); RDW 15.2 % (11.5-14.5)
[2018-09-25 08:52] LABS: AGAP 12; ALB/GLOB RATIO 1.2; ALBUMIN 3.7 g/dL (3.5-5.0); ALKALINE PHOSPHATASE 67 U/L (32-122); BUN 13 mg/dL (8-22); CALCIUM 8.9 mg/dL (8.8-10.2); CHLORIDE 98 mmol/L (98-107); COSMO 268; ESTIMATED GFR > 60; GLUCOSE 101 mg/dL (70-104); GOT 16 U/L (10-34); GPT 24 U/L (10-44); POTASSIUM 3.8 mmol/L (3.5-5.1); SODIUM 134 mmol/L (136-145); TCO2 24 mmol/L (25-35); TOTAL BILIRUBIN 0.75 mg/dL (0.20-1.00); TOTAL PROTEIN 6.7 g/dL (6.3-8.3)
[2018-09-25] MEDS ORDERED: ROCEPHIN 1 GM in NS 50 ML IV SCH (09:00)
[2018-09-25] MEDS ORDERED: LASIX IV SCH (09:00)
[2018-09-25] MEDS: ZITHROMAX PO SCH (09:10)
--- NOTE | 2018-09-25 10:48 | CARDIOLOGY PROGRESS NOTE ---
DATE: 09/25/2018 SUBJECTIVE: Mr. Orozco reports his breathing continues to be somewhat improved. He does appear mildly tachypneic, though. OBJECTIVE: Vital signs: He is afebrile. His heart rates continue to be in the low 100s to 110s. His blood pressure 117/70. Generally: He is in no acute distress. Cardiovascular: He sounds to be in a tachycardic and regular rhythm. His current monitor seems to show sinus tach. He has no lower extremity edema. Warm and well perfused extremities. Lungs: His chest exam sounds relatively clear to auscultation bilaterally. He has no increased work of breathing. Abdomen: Soft, nontender, and nondistended. PERTINENT DATA: Chest x-ray is suggestive of a worsened right pleural effusion. His laboratory data shows a white count 8.6, his hematocrit is 45, platelet count is 236,000. Sodium 134, potassium 3.8, BUN 13, creatinine is 1. ASSESSMENT: Mr. Orozco is a 68-year-old gentleman who presented with a large pericardial effusion, which subsequently has had a drain placed. PLAN: He continues to output a significant amount of 425 mL has been recorded thus far. Drain will remain in place. I will review the echo. The reported initially says his ejection fraction is a normal, but he does appear to have a significant residual pericardial effusion. He could have a loculated effusion and in that case, if it persists, he may need transfer for conversion of the drain over to a more definitive procedure like a pericardial window. Given the complexity of his case, this may be more beneficial to have done with a cardiac surgeon given that he has had a procedure done before, seems to have loculations present as well as a significant amount of extensive vascularity related to his SVC occlusion. cc: Dominguez Sanford MD
--- NOTE | 2018-09-25 12:45 | PROGRESS NOTE ---
DATE: 09/25/2018 SUBJECTIVE: This morning, Mr. Orozco referred to be feeling a little better than yesterday. He said his shortness of breath is under much better control. Denies any chest pain. OBJECTIVE: Vital signs: Blood pressure is 115/75, pulse is 116, respirations 25, temperature is 98.4 degrees, patient is saturating 98% on 4 L. General: Mr. Orozco is a 68-year-old gentleman. He is in bed. HEENT: Mucosa is pink and moist. Anicteric. Acyanotic. Neck: Supple. No JVD. Lungs: He is in mild respiratory distress. Air entry is bilaterally reduced. Some posterior crackles present bilaterally. Cardiovascular: Tachycardic, but no murmurs, no rubs, no gallops. There is a JERRELL drain in the 5th intercostal space. Abdomen: Soft, nontender. Bowel sounds present. No hepatosplenomegaly. Extremities: No pedal edema. RIBBON HANKING MACHINE OPERATOR: Patient is awake, alert, and oriented. INPUT AND OUTPUT: The accordion drain had 425 documented yesterday, which is a significant improvement from the day before. A limited echocardiogram was done yesterday, which continues to show a large posterior pericardial effusion, as well as a large lateral effusion, which raises the concern for loculations. ASSESSMENT: 1. Large symptomatic pericardial effusion, likely malignant in etiology. Patient is status post pericardiocentesis. 425 mL was drained yesterday. This morning the drain looks more serous. It does not look any more bloody. However, a limited echocardiogram continues to show large posterior and lateral effusions, which raises the concern for loculations. We will wait for Surgery evaluation. I have also reached out to Cardiothoracic Surgery in [place]. However, at this point, [place] is on diversion. 2. History of small cell lung cancer. Patient follows up with an oncologist in [place]. 3. 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 4. Bilateral lower lobe atelectasis versus pneumonia. Patient is currently on antibiotics and on incentive spirometer. 5. Pulmonary edema secondary to congestive heart failure with preserved ejection fraction. We will continue with the diuretic therapy. PLAN: So in general, I think Mr. Orozco is fairly stable. He seems to be getting a little better and less symptomatic than before. However, his echocardiogram still shows large pericardial effusions in the posterior and lateral aspects, which raises the concern for loculated pericardial effusions. The patient did have a previous pericardial window. Cardiology has evaluated the patient and raises the concern that if there are loculations that the patient will need a cardiothoracic surgeon. I have reached out to [place]. However, at this point, they are on diversion. I will try and get other places. For today, however, I think Mr. Orozco can be moved to [facility] if we need ICU bed. cc: Brian Welsh MD
[2018-09-25 18:03] VITALS: BP 104/71
[2018-09-25] MEDS ORDERED: FLOMAX PO SCH (21:00)
[2018-09-26] MEDS ORDERED: VITAMIN D PO SCH (09:00)
[2018-09-26] MEDS ORDERED: PROSCAR PO SCH (09:00)
--- NOTE | 2018-09-27 14:00 | DISCHARGE SUMMARY ---
ADMISSION DATE: 09/22/2018 DISCHARGE DATE: 09/25/2018 DATE OF DISCHARGE/TRANSFER: 09/25/2018. DISPOSITION: Cardiac floor in [facility] (room 603). CONSULTATION DURING THIS ADMISSION: 1. Cardiology was consulted. Patient was seen by Dr. Dominguez Sanford. 2. Surgery was consulted. Patient was seen by Dr. Prakash Duval, followed up by Dr. Veronica Coates. ADMISSION DIAGNOSES: 1. Left lower lobe pneumonia. 2. Tachycardia. 3. Pericardial effusion. 4. History of lung cancer. DIAGNOSIS AT THE TIME OF DISCHARGE: 1. 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 The patient was status post pericardiocentesis. However, a follow-up echocardiogram still revealed evidence of loculations, so he was subsequently transferred to [facility] for cardiothoracic evaluation. 2. History of small-cell lung cancer. Patient follows up with an oncologist in [place]. 3. 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 4. Bilateral lower lobe atelectasis versus pneumonia. 5. Pulmonary edema secondary to congestive heart failure with preserved ejection fraction. PRESENTING COMPLAIN: Shortness of breath. HISTORY OF PRESENT COMPLAINT: Mr. 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 The patient has had a pericardial window before because of symptomatic pericardial effusion. He seems to be doing fairly okay except for the past 2 weeks he has been getting progressively short of breath. 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 While down here, he became more short of breath, so he went to [facility] where he was evaluated and admitted, but then transferred to [facility] for higher level of care. During the hospital course, the patient was admitted to the ICU and was seen by both Surgery and Cardiology. Surgery thought the patient had distorted anatomy, so he recommended pericardiocentesis with CT guidance, which was successfully done. The patient continues to drain a lot. However, subsequent echocardiogram did show pockets of large pleural effusions posteriorly and laterally. I personally reached out to [place] early on, however, they were on diversion. Cardiology, however, we were able to get in touch with the colleagues in [facility] and Mr. Orozco was subsequently able to be transferred to the Cardiology Service for Cardiothoracic Surgery to be consulted as well. TIME SPENT FOR DISCHARGE: 37 minutes. cc: MD Dominguez Ramirez MD
== END 2018-09-25 19:41 | disposition short-term general hospital (02) | DRG 314 ==
LOC: P.ED 08:45 → SUATTDRO 16:24 → P.EDIPHOLD 16:24 → ICU 19:54
PROVIDERS: ATTEND Internal Medicine
CPT/HCPCS: 32557; 36430; 71010; 71020; 71045; 71046; 71275; 80053; 82550; 82945; 83615; 83880; 83986; 84157; 84484; 85025; 85027; 85610; 85730; 86850; 86900; 86901; 87015; 87070; 87102; 87116; 87147; 87205; 87206; 89051; 93005; 93306; 93308; 94640; 94799; 96365; 99285; A9270; C8929; J0696; J1940; J2270; J7030; P9017; Q9957; Q9967